=== PATIENT | male | born 1985 | race Caucasian/White ===

== ENCOUNTER 2025-03-09 15:34 | Outpatient (CLI) | payer OTHER, SELFPAY ==
[2025-03-09 17:49] LABS: PSA Diagnostic* 0.83 ng/mL (0.10-4.00)
== END 2025-03-09 15:35 | disposition home or self-care (01) ==
PROVIDERS: PCP Student in an Organized Health Care Education/Training Program; Visit Provider Internal Medicine
DX: C20 Malignant neoplasm of rectum (principal); Z12.5 Encounter for screening for malignant neoplasm of prostate
CPT/HCPCS: 36415; 84153